=== PATIENT | female | born 1990 | race Caucasian/White ===

== ENCOUNTER 2018-05-06 09:11 | Emergency (ER) | payer OTHER ==
--- NOTE | 2018-05-06 09:49 | ED Physician Documentation ---
PD HPI URI - Stated complaint Stated Complaint: FLU LIKE SX - Chief complaint Chief Complaint: Resp - History obtained from History obtained from: Patient - History of Present Illness Timing - onset: How many days ago (4) Timing details: Gradual onset Pain level max: 2 Pain level now: 2 Associated symptoms: Nasal congestion, Rhinorrhea, Sore throat, Productive cough, Chest pain, Dyspnea. No: Hemoptysis, NVD, Bilateral edema, Unilateral edema Contributing factors: No: Sick contact, Travel, Immunocompromised Improves by: Nothing Worsened by: Breathing, Other (Coughing) Similar symptoms before: Has not had sx before Recently seen: Not recently seen - Additional information Additional information: 28-year-old female with history of hypothyroid here with complaint of flulike symptoms the past 4 days. Patient stated it started as a sore throat 4 days ago which later in the evening progressed to sinus drainage and nasal congestion. Initially cough was clear but it has now become yellowish white. She also stated she has chest pressure and tightness that is constant and rated as 2/10 without radiation the past 3 days. Yesterday she felt she cannot get enough air. Patient is on control pills since April 17. She denies any trauma, travel or immobility. Review of Systems Ten Systems: 10 systems reviewed and negative Constitutional: denies: Fever, Myalgias Throat: reports: Sore throat Cardiac: reports: Chest pain / pressure Respiratory: reports: Dyspnea, Cough. denies: Hemoptysis GI: denies: Abdominal Pain, Nausea, Vomiting, Diarrhea Musculoskeletal: denies: Extremity pain, Extremity swelling Neurologic: denies: Generalized weakness PD PAST MEDICAL HISTORY - Past Medical History Past Medical History: Yes Endocrine/Autoimmune: HyPOthyroidism Other Past Medical History: Brent's - Past Surgical History Past Surgical History: Yes - Present Medications Home Medications: Ambulatory Orders Medication Instructions Recorded Confirmed Azithromycin [Zithromax Tri-Jose] 500 mg PO DAILY 3 Days #3 tablet 05/06/18 Ethinyl Estradiol/Drospirenone 1 each PO 05/06/18 [Rhonda 28 Tablet] Levothyroxine Sodium [Synthroid] 75 mcg PO 05/06/18 - Allergies Allergies/Adverse Reactions: Allergies Allergy/AdvReac Type Severity Reaction Status Date / Time No Known Drug Allergies Allergy Verified 05/06/18 09:16 - Social History Does the pt smoke?: No Smoking Status: Never smoker Does the pt drink ETOH?: No Does the pt have substance abuse?: No - Immunizations Immunizations are current?: Yes PD ED PE NORMAL - Vitals Vital signs reviewed: Yes - General General: Alert and oriented X 3, No acute distress, Well developed/nourished - HEENT HEENT: PERRL, EOMI, Moist mucous membranes, Pharynx benign - Neck Neck: Supple, no meningeal sign, No adenopathy - Cardiac Cardiac: RRR, No murmur - Respiratory Respiratory: No respiratory distress, Clear bilaterally - Abdomen Abdomen: Normal bowel sounds, Soft, Non tender, Non distended - Derm Derm: Warm and dry - Extremities Extremities: No deformity, No tenderness to palpate, Normal ROM s pain, No edema - Neuro Neuro: Alert and oriented X 3 - Psych Psych: Normal mood, Normal affect Results - Vitals Vitals: Vital Signs - 24 hr 05/06/18 09:14 Temperature 36.2 C L Heart Rate 95 Respiratory 18 Rate Blood Pressure 135/88 H O2 Saturation 99 Oxygen O2 Source Room air - Labs Labs: Laboratory Tests 05/06/18 05/06/18 05/06/18 09:20 10:00 10:00 WBC 9.4 RBC 4.72 Hgb 15.2 Hct 43.4 MCV 91.9 MCH 32.2 H MCHC 35.0 RDW 12.8 Plt Count 251 MPV 9.1 Neut # (Auto) 6.2 Lymph # (Auto) 2.0 [place] # (Auto) 0.6 Eos # (Auto) 0.5 Baso # (Auto) 0.0 Absolute Nucleated RBC 0.00 Nucleated RBC % 0.0 D-Dimer Sodium 135 Potassium 4.0 Chloride 105 Carbon Dioxide 19 L Anion Gap 11.0 BUN 6 Creatinine 0.7 Estimated GFR (MDRD) 99 Glucose 125 H Calcium 9.1 Total Bilirubin 0.5 AST 21 ALT 20 Alkaline Phosphatase 57 Troponin I Total Protein 8.1 Albumin 4.1 Globulin 4.0 Albumin/Globulin Ratio 1.0 Lipase 28 Ur Specific [place] Urine HCG, Qual Influenza A (Rapid) Negative Influenza B (Rapid) Negative 05/06/18 05/06/18 05/06/18 10:00 10:00 10:00 WBC RBC Hgb Hct MCV MCH MCHC RDW Plt Count MPV Neut # (Auto) Lymph # (Auto) [place] # (Auto) Eos # (Auto) Baso # (Auto) Absolute Nucleated RBC Nucleated RBC % D-Dimer < 200.0 L Sodium Potassium Chloride Carbon Dioxide Anion Gap BUN Creatinine Estimated GFR (MDRD) Glucose Calcium Total Bilirubin AST ALT Alkaline Phosphatase Troponin I < 0.04 Total Protein Albumin Globulin Albumin/Globulin Ratio Lipase Ur Specific [place] <=1.005 Urine HCG, Qual NEGATIVE Influenza A (Rapid) Influenza B (Rapid) - Rads (name of study) cxr Radiology: Prelim report reviewed (Radiology reports showed small possible infiltrate on the left base.) PD MEDICAL DECISION MAKING - ED course Complexity details: reviewed results, re-evaluated patient, considered differential (Influenza, viral syndrome, bronchitis, pneumonia, PE, atypical ACS), d/w patient ED course: 1058 patient laying in bed in no acute distress and nontoxic-appearing. Patient inform of test results including possible early pneumonia from chest x-ray. We will discharged on Z-Jsoe. Departure - Departure Disposition: 01 Home, Self Care Clinical Impression: Pneumonia Qualifiers: Pneumonia type: due to unspecified organism Laterality: left Lung location: lower lobe of lung Qualified Code(s): J18.1 - Lobar pneumonia, unspecified organism Condition: Stable Instructions: ED Pneumonia Adult Prescriptions: Azithromycin [Zithromax Tri-Jose] 500 mg PO DAILY 3 Days #3 tablet Comments: Take the antibiotic Z-Jose as prescribed. OTC Tylenol or Motrin for pain or fever. Drink lots of fluids and eat healthy. Follow-up with your primary doctor this week. If worse return to the emergency room.
[2018-05-06 10:06] LABS: BASOPHILS % (AUTO) 0.5 %; EOSINOPHILS # (AUTO) 0.5 10^3/uL (0.0-0.7); EOSINOPHILS % (AUTO) 5.4 %; HGB - HEMOGLOBIN 15.2 g/dL (12.0-16.0); LYMPHOCYTES % (AUTO) 21.2 %; MEAN CORPUSCULAR HEMOGLOBIN 32.2 pg (27.0-31.0); MEAN CORPUSCULAR VOLUME 91.9 fL (81.0-99.0); MEAN PLATELET VOLUME 9.1 fL (7.9-10.8); MONOCYTES # (AUTO) 0.6 10^3/uL (0.0-1.0); MONOCYTES % (AUTO) 6.3 %; NEUTROPHILS # (AUTO) 6.2 10^3/uL (1.5-6.6); NEUTROPHILS % (AUTO) 66.6 %; PLT - PLATELET COUNT 251 10^3/uL (130-450); RED BLOOD COUNT 4.72 10^6/uL (4.20-5.40); RED CELL DISTRIBUTION WIDTH 12.8 % (12.0-15.0); WHITE BLOOD COUNT 9.4 x10^3/uL (4.8-10.8)
[2018-05-06 10:09] LABS: HCG UR QUAL NEGATIVE
[2018-05-06 10:19] LABS: ALBUMIN 4.1 g/dL (3.2-5.5); BILIRUBIN,TOTAL 0.5 mg/dL (0.2-1.0); CALCIUM 9.1 mg/dL (8.5-10.3); CREATININE 0.7 mg/dL (0.4-1.0); TOTAL PROTEIN 8.1 g/dL (6.7-8.2)
--- NOTE | 2018-05-06 10:35 | XRAY Report ---
Reason: chest pain Procedure Date: 05/06/2018 Accession Number: [id number] / [id number] Procedure: XR - Chest 1 View X-Ray CPT Code: 37598 FULL RESULT: EXAM: CHEST RADIOGRAPHY EXAM DATE: 05/06/2018 10:11 AM. CLINICAL HISTORY: Chest pain. COMPARISON: None. TECHNIQUE: 1 view. FINDINGS: Lungs/Pleura: There is mild hazy left basilar opacity. No other focal airspace opacity. No pleural effusion or pneumothorax. Mediastinum: Cardiomediastinal silhouette and pulmonary vasculature are within normal limits. Other: None. IMPRESSION: Mild hazy left basilar opacity, which may represent atelectasis or mild infiltrate. RADIA
[2018-05-06 11:12] VITALS: BP 121/75
== END 2018-05-06 11:18 | disposition home or self-care (01) ==
LOC: ED 09:11
DX: J18.1 Lobar pneumonia, unspecified organism (principal)
CPT/HCPCS: 36415; 71045; 80053; 81025; 83690; 84484; 85025; 85379; 87275; 87276; 93005; 99283

== ENCOUNTER 2018-06-18 16:00 | Emergency (ER) | payer OTHER ==
[2018-06-18] MEDS ORDERED: ALBUTEROL NEB 2.5 MG/3 ML INH STA (16:37)
--- NOTE | 2018-06-18 16:47 | ED Physician Documentation ---
History of Present Illness - Stated complaint Stated Complaint: COUGH/FEVER - Chief complaint Chief Complaint: Fever - History obtained from History obtained from: Patient - History of Present Illness Timing: Yesterday Pain level max: 4 Pain level now: 4 - Additonal information Additional information: 28-year-old female presents to the emergency department with fever, congestion, cough. This is been ongoing since yesterday. Has been exposed to flu. She has used inhalers in the past and does feel like she is having a hard time breathing. Better with rest, Motrin. Nothing makes it worse. She is not . Negative test 2 days ago Review of Systems Constitutional: reports: Fever Nose: reports: Rhinorrhea / runny nose, Congestion Respiratory: reports: Cough GI: denies: Vomiting Skin: denies: Rash Musculoskeletal: denies: Neck pain, Back pain Neurologic: denies: Headache PD PAST MEDICAL HISTORY - Past Medical History Past Medical History: Yes Endocrine/Autoimmune: HyPOthyroidism - Past Surgical History Past Surgical History: Yes - Present Medications Home Medications: Ambulatory Orders Medication Instructions Recorded Confirmed Azithromycin [Zithromax Tri-Jose] 500 mg PO DAILY 3 Days #3 tablet 05/06/18 Ethinyl Estradiol/Drospirenone 1 each PO 05/06/18 [Rhonda 28 Tablet] Levothyroxine Sodium [Synthroid] 75 mcg PO 05/06/18 Albuterol Sulf [Ventolin Hfa 1 - 2 puffs INH Q4HR PRN #1 inhaler 06/18/18 Inhaler] Benzonatate [Tessalon Perle] 100 - 200 mg PO TID PRN #30 capsule 06/18/18 - Allergies Allergies/Adverse Reactions: Allergies Allergy/AdvReac Type Severity Reaction Status Date / Time No Known Drug Allergies Allergy Verified 06/18/18 16:11 - Social History Does the pt smoke?: No Smoking Status: Never smoker Does the pt drink ETOH?: No Does the pt have substance abuse?: No - Immunizations Immunizations are current?: Yes PD ED PE NORMAL - Vitals Vital signs reviewed: Yes - General General: Alert and oriented X 3, No acute distress - HEENT HEENT: Ears normal, Moist mucous membranes, Pharynx benign - Neck Neck: Supple, no meningeal sign - Cardiac Cardiac: RRR - Respiratory Respiratory: No respiratory distress, Other (Wheezing bilaterally) - Abdomen Abdomen: Soft, Non tender, Non distended - Back Back: No spinal TTP - Derm Derm: Warm and dry, No rash - Extremities Extremities: No edema - Neuro Neuro: Alert and oriented X 3 - Psych Psych: Normal mood, Normal affect Results - Vitals Vitals: Vital Signs - 24 hr 06/18/18 06/18/18 06/18/18 16:09 16:54 17:25 Temperature 36.8 C 36.4 C L Heart Rate 117 H 114 H 111 H Respiratory 16 20 18 Rate Blood Pressure 148/85 H 121/74 O2 Saturation 99 99 Oxygen O2 Source Room air - Labs Labs: Laboratory Tests 06/18/18 16:12 Influenza A (Rapid) POSITIVE H Influenza B (Rapid) Negative PD MEDICAL DECISION MAKING - ED course Complexity details: reviewed results, re-evaluated patient, considered differential, d/w patient ED course: 28-year-old female presents to the emergency department with influenza A. She has wheezing as well, improved with albuterol. She is well-appearing, nontoxic. Afebrile. We will continue supportive care and follow-up with her doctor. Did discuss Tamiflu, including the risks and benefits, patient declines at this time. Patient counseled regarding signs and symptoms for which I believe and urgent re-evaluation would be necessary. Patient with good understanding of and agreement to plan and is comfortable going home at this time This document was made in part using voice recognition software. While efforts are made to proofread this document, sound alike and grammatical errors may occur. Departure - Departure Disposition: 01 Home, Self Care Clinical Impression: Influenza A Condition: Good Instructions: ED Flu Follow-Up: ANGELA ALEX [Primary Care Provider] - Within 1 week Prescriptions: Albuterol Sulf [Ventolin Hfa Inhaler] 1 - 2 puffs INH Q4HR PRN #1 inhaler PRN Reason: Shortness Of Air/Wheezing Benzonatate [Tessalon Perle] 100 - 200 mg PO TID PRN #30 capsule PRN Reason: Cough Comments: Go home and rest. Drink plenty of fluids. This will improve over the next week or so. Discharge Date/Time: 06/18/18 17:00
[2018-06-18 17:26] VITALS: BP 121/74
== END 2018-06-18 17:00 | disposition home or self-care (01) ==
LOC: ED 16:00
DX: J10.1 Influenza due to other identified influenza virus with other respiratory manifestations (principal); E03.9 Hypothyroidism, unspecified
CPT/HCPCS: 87275; 87276; 94640; 94664; 99283

== ENCOUNTER 2019-08-04 18:13 | Emergency (ER) | payer OTHER ==
[2019-08-04 18:26] VITALS: BP 161/99
--- NOTE | 2019-08-04 18:31 | ED Physician Documentation ---
PD HPI URI - Stated complaint Stated Complaint: DRY COUGH, SHALLOW BREATHING - Chief complaint Chief Complaint: Resp - History obtained from History obtained from: Patient - History of Present Illness Timing - onset: How many days ago (few) Timing duration: Days (few) Timing details: Gradual onset, Still present, Waxing and waning Associated symptoms: Nasal congestion, Rhinorrhea, Dry cough, Dyspnea. No: Fever, Chills, Sinus pain, Sore throat, NVD Contributing factors: No: Sick contact, Travel, COPD / asthma Similar symptoms before: Diagnosis (seasonal allergies, but did have pneumonia last year around this time.) Recently seen: Not recently seen Review of Systems Constitutional: denies: Fever, Chills, Myalgias, Fatigue Nose: reports: Rhinorrhea / runny nose, Congestion Throat: denies: Sore throat Respiratory: reports: Cough, Wheezing GI: denies: Nausea, Vomiting, Diarrhea Neurologic: reports: Generalized weakness. denies: Focal weakness, Numbness, Near syncope PD PAST MEDICAL HISTORY - Past Medical History Endocrine/Autoimmune: HyPOthyroidism - Past Surgical History Past Surgical History: Yes - Present Medications Home Medications: Ambulatory Orders Medication Instructions Recorded Confirmed Ethinyl Estradiol/Drospirenone 1 each PO DAILY 05/06/18 08/04/19 [Rhonda 28 Tablet] Levothyroxine Sodium [Synthroid] 75 mcg PO DAILY 05/06/18 08/04/19 Albuterol Sulfate [Albuterol 2 puffs IH QID #1 hfa.aer.ad 08/04/19 Sulfate Hfa] Benzonatate [Tessalon Perle] 100 mg PO TID PRN #20 capsule 08/04/19 Doxycycline Monohydrate 100 mg PO BID #14 tablet 08/04/19 dexAMETHasone [Decadron] 4 mg PO DAILY #5 tablet 08/04/19 - Allergies Allergies/Adverse Reactions: Allergies Allergy/AdvReac Type Severity Reaction Status Date / Time acetaminophen [From Vicodin] Allergy Itching Verified 08/04/19 18:21 hydrocodone [From Vicodin] Allergy Itching Verified 08/04/19 18:21 - Social History Does the pt smoke?: No Smoking Status: Never smoker Does the pt drink ETOH?: No Does the pt have substance abuse?: No - Immunizations Immunizations are current?: Yes PD ED PE NORMAL - Vitals Vital signs reviewed: Yes - General General: Alert and oriented X 3, No acute distress, Well developed/nourished - HEENT HEENT: Ears normal, Moist mucous membranes, Pharynx benign - Neck Neck: Supple, no meningeal sign, No adenopathy - Cardiac Cardiac: RRR (regular with mild tachycardia), No murmur - Respiratory Respiratory: No: Clear bilaterally (faint wheezing diffusely) - Derm Derm: Normal color, Warm and dry - Extremities Extremities: No tenderness to palpate, Normal ROM s pain, No edema, No calf tenderness / cord - Neuro Neuro: Alert and oriented X 3, No motor deficit, Normal speech Results - Vitals Vitals: Vital Signs - 24 hr 08/04/19 18:21 Temperature 36.7 C Heart Rate 107 H Respiratory 16 Rate Blood Pressure 161/99 H O2 Saturation 98 Oxygen O2 Source Room air PD MEDICAL DECISION MAKING - ED course Complexity details: considered differential (seems more likely seasonal allergies, without fever nor URI symptoms per se. ), d/w patient Departure - Departure Disposition: 01 Home, Self Care Clinical Impression: Seasonal allergies Upper respiratory infection Qualifiers: URI type: unspecified URI Qualified Code(s): J06.9 - Acute upper respiratory infection, unspecified Condition: Stable Record reviewed to determine appropriate education?: Yes Instructions: ED Upper Resp Infec No Abx Tx Follow-Up: ANGELA ALEX [Primary Care Provider] - Prescriptions: Albuterol Sulfate [Albuterol Sulfate Hfa] 2 puffs IH QID #1 hfa.aer.ad Benzonatate [Tessalon Perle] 100 mg PO TID PRN #20 capsule PRN Reason: Cough dexAMETHasone [Decadron] 4 mg PO DAILY #5 tablet Doxycycline Monohydrate 100 mg PO BID #14 tablet Comments: This may actually be just seasonal allergies with the congestion mild cough and trouble breathing. It could also be a viral illness. At this point it does not sound bacterial or pneumonia. Considerations on a viral illness could include coronavirus so you do want to see how much worsening you are having and stay isolated from other people at this point. At at the current time your symptoms seem mild and your oxygenation is good and your lungs are clear. Use the albuterol inhaler 2 to 3 puffs 4 times a day for the next several days to week and extra times as needed. Decadron steroid for inflammation of the airways and sinuses daily for 5 more days. Add Tessalon if needed for cough. If you develop purulent sputum or such similar to your bronchitis in past years, then you could add antibiotic at that point. I would not take it at this point as it does not sound bacterial as yet. Discharge Date/Time: 08/04/19 19:05
[2019-08-04] MEDS ORDERED: CHERRY SYRUP 10 ML UDC PO ONE (18:52)
[2019-08-04] MEDS ORDERED: BENZONATATE 100 MG CAPSULE PO STA (18:52)
[2019-08-04] MEDS ORDERED: DEXAMETHASONE 10 MG/ML VIAL PO STA (18:52)
== END 2019-08-04 19:05 | disposition home or self-care (01) ==
LOC: ED 18:13
DX: J06.9 Acute upper respiratory infection, unspecified (principal); J30.2 Other seasonal allergic rhinitis; E03.9 Hypothyroidism, unspecified
CPT/HCPCS: 99284; A9270